=== PATIENT | female | born 1945 | race Caucasian/White ===

== ENCOUNTER 2017-05-06 20:51 | Emergency (ER) | payer MEDICARE ==
[~2017-05-06] VITALS: Ht 167.6 cm; Wt 54.4 kg
[2017-05-06] MEDS ORDERED: SERT50TA14 (21:09)
--- NOTE | 2017-05-06 21:10 | NUR ---
PATIENT WALKED INTO ER C/O WOUND BLEEDING ON FOREHEAD FOR SEVERAL HOURS. 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 HERE FOR BLEEING NOT STOPPING.PLACED PRESSURE DRESSING ON SITE
--- NOTE | 2017-05-06 21:28 | NUR ---
DR RAMOS INTO RE EVAL PATIENT.BLEEDING STOPPED AT THIS TIME
[2017-05-06 21:37] VITALS: BP 128/85
--- NOTE | 2017-05-06 21:37 | NUR ---
Patient discharged to home in stable conditon WITH TAKING PATIENT HOME. Written and verbal after care instructions given. Patient verbalizes understanding of instructions. WALKED OUT OF ER WITH NO DISTRESS NOTED
== END 2017-05-06 21:38 | disposition home or self-care (01) ==
LOC: ER 20:53
DX: S01.81XA Laceration without foreign body of other part of head, initial encounter (principal); X58.XXXA Exposure to other specified factors, initial encounter; Y93.89 Activity, other specified; Y92.89 Other specified places as the place of occurrence of the external cause; Y99.8 Other external cause status
CPT/HCPCS: 99282; A4663